=== PATIENT | female | born 1950 | race Caucasian/White ===

== ENCOUNTER 2019-03-07 08:15 | Inpatient (IN) | payer BC, MEDICARE ==
[~2019-03-07] VITALS: Ht 154.9 cm; Wt 83.1 kg
[2019-03-07] VITALS (7 sets, daily range): BP systolic 130–199; BP diastolic 36–91; PULSE 56–68; TEMP 97.7–98.2
[~2019-03-07 08:15] MED LIST: ALPRAZOLAM0.25 MG PO; BENICAR; BIRTH CONTROL PO; COZAAR 25MG25 MG/TAB PO; DIOVAN HCT 12.51 TAB PO; DULCOLAX STOOL100 MG PO; ELIQUIS 5MG PO; FASTIN; HIPREX PO; HYZAAR 50-12.1 UDTAB PO; LIPITOR 40MG TA40 MG PO; LIPITOR20 MG PO; LOPRESSOR 225 MG/TAB PO; NORCO 325 MG-51 TAB PO; NORCO 325 MG-7.1 TAB PO; VITAMIN C500 MG PO; XANAX .25M0.25 MG/TA PO
[2019-03-07] MEDS ORDERED: COZAAR100 MG PO ×2 (08:28→08:29)
[2019-03-07] MEDS ORDERED: CLEOCIN HC150 MG/CAP PO (08:29)
--- NOTE | 2019-03-07 08:30 | NUR ---
Pt arrived to room 304 at this time. She is A/O x3. She is up independently in her room. Pt denies pain at this time, but reports intermittent L jaw pain due to a tooth. Denies N/V. POC discussed with patient who verbalizes understanding. 20G IV started to RAC. No needs at this time. Call light within reach.
[2019-03-07] MEDS ORDERED: TYLENOL 500MG500 MG PO (08:32)
[2019-03-07 09:57] LABS: BASO # 0.1 (0.0-0.2); BASO % 0.8 % (0.0-2.0); EOS # 0.1 (0.0-0.7); EOS % 1.1 % (0-4.0); GRAN % 64.1 % (42.2-75.2); HEMATOCRIT 39.2 % (37.0-47.0); HEMOGLOBIN 12.6 g/dl (12.5-16.0); LYMPH # 1.7 (1.2-3.4); MEAN CELL VOLUME 87 fl (80.0-100.0); MEAN CORPUSCULAR HEMOGLOBIN 28 pg (27.0-31.0); MEAN CORPUSCULAR HGB CONC 32 g/dl (33.0-37.0); MONO # 0.4 (0.1-0.6); MONO % 6.7 % (1.7-9.3); PLATELET COUNT 239 K/mm3 (130-400); REDCELL DISTRIBUTION WIDTH-CV 13.9 % (11.5-14.5)
[2019-03-07 10:00] LABS: INR 1.3 (0.8-3.0); PROTHROMBIN TIME 14.8 SECONDS (9.7-12.8)
[2019-03-07 10:14] LABS: ALBUMIN 4.5 gm/dL (3.5-5.0); BILIRUBIN,TOTAL 0.4 mg/dL (0.0-1.0); CALCIUM 9.8 mg/dL (8.4-10.2); CREATININE, serum 0.6 (0.52-1.25); MAGNESIUM 2.3 mg/dL (1.6-2.3); POTASSIUM 4.2 mmol/L (3.4-5.0); TOTAL PROTEIN 7.9 gm/dL (6.4-8.2)
--- NOTE | 2019-03-07 18:47 | NUR ---
Pt report given to ESTRELLA Mendoza. Pt had high blood pressures through the day, Dr. Frank aware, PRN bp medication ordered. Pt appeared to be relaxed and denies any anxiety at time. PRN Tylenol administered for tooth pain. Family at bedside at this time. Call light within reach.
--- NOTE | 2019-03-07 19:32 | NUR ---
Patient sitting up in bed, knitting. Assessment completed- lungs clear, abdominal sounds active, pulses +3, cap reifll <3 seconds. C/O tooth pain- will give PRN tylenol to help alleviate pain. Alert and oriented x4, independent in room.
[2019-03-08 04:10] VITALS: BP 145/37; PULSE 63; TEMP 97.9
--- NOTE | 2019-03-08 05:10 | NUR ---
Pt slept for most of the night. Blood pressures improved over night, no hydralazine administered this shift. NO reports of pain. Alert and oriented, independent. Tylenol administered for tooth pain early in the shift. No reports of pain since.
[2019-03-08 06:55] LABS: BASO % 0.7 % (0.0-2.0); EOS # 0.1 (0.0-0.7); EOS % 1.8 % (0-4.0); GRAN # 3.6 (1.4-6.5); GRAN % 59.4 % (42.2-75.2); HEMATOCRIT 37.9 % (37.0-47.0); HEMOGLOBIN 12.4 g/dl (12.5-16.0); LYMPH # 1.9 (1.2-3.4); LYMPH % 30.4 % (20.0-51.0); MEAN CELL VOLUME 87 fl (80.0-100.0); MEAN CORPUSCULAR HEMOGLOBIN 28 pg (27.0-31.0); MEAN CORPUSCULAR HGB CONC 33 g/dl (33.0-37.0); MEAN PLATELET VOLUME 9.5 fl (7.4-10.4); MONO # 0.5 (0.1-0.6); MONO % 7.4 % (1.7-9.3); PLATELET COUNT 242 K/mm3 (130-400); RED BLOOD COUNT 4.36 M/mm3 (4.10-5.30)
[2019-03-08 06:58] LABS: CALCIUM 9.7 mg/dL (8.4-10.2); CREATININE, serum 0.65 (0.52-1.25); MAGNESIUM 2.4 mg/dL (1.6-2.3); POTASSIUM 4.3 mmol/L (3.4-5.0)
--- NOTE | 2019-03-08 07:10 | NUR ---
Report given to ESTRELLA Mendoza.
[2019-03-08 07:43] VITALS: BP 157/62; PULSE 65; TEMP 97.8
--- NOTE | 2019-03-08 09:14 | NUR ---
Pt assessment complete. Pt is sitting up on bench knitting. A/O x3. Her breathing is even and unlabored on RA. Pt reports pain to her L jaw/tooth, PRN Tylenol administered. Pt denies any N/V. No chest pain or palpitations. Pt updated on POC and BP. No needs at this time, call light within reach.
[2019-03-08 11:47] VITALS: BP 141/66; PULSE 57; TEMP 98.1
--- NOTE | 2019-03-08 12:18 | NUR ---
First visit from the oxygraph operator. No needs right now.
--- NOTE | 2019-03-08 15:11 | NUR ---
JESSICA student met with the patient to discuss discharge planning. The patient lives in [place] with her Davis. The patient reports independence with ADLs and has no DME. The patients PCP is Dr. Kimberley Cha and she gets her medications from [facility]. The patient reports no difficulties obtaining her medications. The patient does not have DPOA-HC in EMR but was interested in completing one. The patient assigned her Davis and son Andrea. SW and JESSICA student witnessed the patient sign. The patient was provided with the original and copies. A copy was placed in the patients chart. The patient plans to return home with [facility] support upon discharge. No additional needs at this time.
[2019-03-08 15:31] VITALS: BP 152/58; PULSE 58; TEMP 98.1
[2019-03-08 18:50] VITALS: BP 164/66; PULSE 68; TEMP 98.5
--- NOTE | 2019-03-08 19:13 | NUR ---
Pt had uneventful day, intermittent pain to L jaw/tooth. No needs at this time. Call light within reach.
--- NOTE | 2019-03-08 20:10 | NUR ---
Patient resting in bed. Assessment completd- lung sounds clear, abdominal sounds active, pulses +3, cap refill <3 seconds, ambulatory, alert and oriented x4. C/O toothache- given PRN tylenol. No further needs at this time.
[2019-03-08 23:06] VITALS: BP 139/48; PULSE 51; TEMP 97.9
[2019-03-09 04:27] VITALS: BP 156/52; PULSE 56; TEMP 97.9
--- NOTE | 2019-03-09 05:23 | NUR ---
Pt slept for most of the shift. VSS, afebrile. Tooth pain at beginning of shift relieved by tylenol. alert and oriented x4, independent. no needs at this time.
[2019-03-09 06:56] LABS: BASO % 0.6 % (0.0-2.0); EOS # 0.1 (0.0-0.7); EOS % 1.8 % (0-4.0); GRAN # 4.2 (1.4-6.5); GRAN % 61.8 % (42.2-75.2); HEMATOCRIT 37.5 % (37.0-47.0); HEMOGLOBIN 12.3 g/dl (12.5-16.0); LYMPH % 29.2 % (20.0-51.0); MEAN CELL VOLUME 86 fl (80.0-100.0); MEAN CORPUSCULAR HEMOGLOBIN 28 pg (27.0-31.0); MEAN CORPUSCULAR HGB CONC 33 g/dl (33.0-37.0); MEAN PLATELET VOLUME 9.1 fl (7.4-10.4); MONO # 0.4 (0.1-0.6); MONO % 6.3 % (1.7-9.3); PLATELET COUNT 244 K/mm3 (130-400); RED BLOOD COUNT 4.38 M/mm3 (4.10-5.30)
[2019-03-09 07:13] LABS: CALCIUM 9.6 mg/dL (8.4-10.2); CREATININE, serum 0.64 (0.52-1.25); MAGNESIUM 2.3 mg/dL (1.6-2.3); POTASSIUM 4.1 mmol/L (3.4-5.0)
--- NOTE | 2019-03-09 07:33 | NUR ---
REPORT GIVEN TO ESTRELLA DE DIOS. PATIENT AWAKE, ASKING FOR SHOWER THIS MORNING. NO TOHER NEEDS AT THIS TIME.
[2019-03-09 07:53] VITALS: BP 153/49; PULSE 51; TEMP 98
[2019-03-09] MEDS ORDERED: BETAPACE 80MG80 MG PO (10:09)
[2019-03-09] MEDS ORDERED: NORVASC 5MG5 MG/TAB PO (10:10)
[2019-03-09] MEDS ORDERED: ALDACTONE 25MG25 M1 PO (10:11)
[2019-03-09] MEDS ORDERED: BETAPACE 120MG120 MG PO (10:17)
[2019-03-09 10:55] VITALS: BP 167/59; PULSE 60; TEMP 97.7
--- NOTE | 2019-03-09 12:06 | NUR ---
patient assessment complete. patient sitting in chair knitting. lungs are clear throughout, heart sounds normal, no edema noted. Patient has no complaints. "Ready to hop in the RV and go north". Pulses are strong bilaterally in upper and lower extremities. PAtient is discharging. IV discontinued, catheter tip intact. Denies other needs at this time. Waiting for aide to escort out.
--- NOTE | 2019-03-12 10:15 | NUR ---
bingo worker received call from Aminah with [employer] ([phone]). Worker collaborated on patient's discharge plan.
== END 2019-03-09 11:55 | disposition home or self-care (01) | DRG 310 ==
LOC: PEDS 08:15
PROVIDERS: ADMIT Internal Medicine Cardiovascular Disease
DX: I48.0 Paroxysmal atrial fibrillation (principal); Z79.01 Long term (current) use of anticoagulants; I10 Essential (primary) hypertension; Z88.0 Allergy status to penicillin; Z87.891 Personal history of nicotine dependence; E78.2 Mixed hyperlipidemia
CPT/HCPCS: J0360

== ENCOUNTER → 2019-06-08 | Outpatient (CLI) | payer OTHER, MEDICARE ==
[~2019-06-08] MED LIST changes: +ALDACTONE 25MG25 M1 PO; +BETAPACE 120MG120 MG PO; +BETAPACE 80MG80 MG PO; +CLEOCIN HC150 MG/CAP PO; +COZAAR100 MG PO; +NORVASC 5MG5 MG/TAB PO; +TYLENOL 500MG500 MG PO
== END ==
LOC: MC.RAD 06:50
DX: Z12.31 Encounter for screening mammogram for malignant neoplasm of breast (principal)

== ENCOUNTER 2019-10-13 10:09 | Emergency (ER) | payer OTHER, MEDICARE ==
[~2019-10-13] VITALS: Ht 157.5 cm; Wt 81.4 kg
[2019-10-13 10:16] VITALS: TEMP 98.7
[2019-10-13 10:57] LABS: COLLECTION METHOD CLEAN CATCH
[2019-10-13 11:01] LABS: BASO # 0.1 (0.0-0.2); BASO % 0.4 % (0.0-2.0); EOS # 0.1 (0.0-0.7); EOS % 0.4 % (0-4.0); GRAN % 81.1 % (42.2-75.2); HEMATOCRIT 37.9 % (37.0-47.0); HEMOGLOBIN 12.6 g/dl (12.5-16.0); LYMPH # 1.4 (1.2-3.4); LYMPH % 10.1 % (20.0-51.0); MEAN CELL VOLUME 87 fl (80.0-100.0); MEAN CORPUSCULAR HEMOGLOBIN 29 pg (27.0-31.0); MEAN CORPUSCULAR HGB CONC 33 g/dl (33.0-37.0); MEAN PLATELET VOLUME 9.6 fl (7.4-10.4); MONO # 1.1 (0.1-0.6); MONO % 7.7 % (1.7-9.3); PLATELET COUNT 254 K/mm3 (130-400); RED BLOOD COUNT 4.36 M/mm3 (4.10-5.30); REDCELL DISTRIBUTION WIDTH-CV 12.7 % (11.5-14.5)
[2019-10-13 11:15] LABS: ALBUMIN 4.5 gm/dL (3.5-5.0); BILIRUBIN,TOTAL 0.7 mg/dL (0.0-1.0); CALCIUM 9.9 mg/dL (8.4-10.2); CREATININE, serum 0.71 (0.52-1.25); MUCOUS Present /lpf; PH 6 (5-8); POTASSIUM 4.2 mmol/L (3.4-5.0); SQUAMOUS EPITHELIAL 0-2 /hpf; TOTAL PROTEIN 8.3 gm/dL (6.4-8.2); URINE APPEARANCE Clear; URINE BACTERIA None Seen /hpf; URINE BILIRUBIN Negative (NEGATIVE); URINE BLOOD Negative (NEGATIVE); URINE COLOR Yellow; URINE GLUCOSE Negative (NEGATIVE); URINE KETONE 1+ (NEGATIVE); URINE LEUKOCYTE ESTERASE 1+ (NEGATIVE); URINE NITRATE Negative (NEGATIVE); URINE PROTEIN(semi-quant) Negative (NEGATIVE); URINE RBC 0-2 /hpf; URINE UROBILINOGEN Negative (NEGATIVE)
[2019-10-13] MEDS ORDERED: SEPTRA DS 8001 TAB PO (12:26)
[2019-10-13] MEDS ORDERED: FLAGYL500 MG PO (12:26)
[2019-10-13] MEDS ORDERED: BENTYL 10MG10 MG/CAP PO (12:27)
[2019-10-13] MEDS ORDERED: LEVAQUIN 750MG750 M1 PO (12:57)
[2019-10-13] MEDS ORDERED: ZOFRAN ODT4 MG PO (12:58)
[2019-10-13 14:40] VITALS: BP 145/69; PULSE 69
== END 2019-10-13 14:52 | disposition home or self-care (01) ==
LOC: COL.ER 10:09
PROVIDERS: Emergency Medicine
DX: K57.92 Diverticulitis of intestine, part unspecified, without perforation or abscess without bleeding (principal)
CPT/HCPCS: J1170; J1956; J2405; J2550; J7030

== ENCOUNTER 2020-04-22 17:09 | Emergency (ER) | payer OTHER ==
[~2020-04-22] VITALS: Ht 157.5 cm; Wt 81.4 kg
[~2020-04-22 17:09] MED LIST changes: +BENTYL 10MG10 MG/CAP PO; +FLAGYL500 MG PO; +LEVAQUIN 750MG750 M1 PO; +SEPTRA DS 8001 TAB PO; +ZOFRAN ODT4 MG PO
[2020-04-22 17:28] VITALS: TEMP 98.7
[2020-04-22] MEDS ORDERED: EPA FISH OIL1 SGL PO (19:29)
[2020-04-22] MEDS ORDERED: ZOLOFT 50MG50 MG PO (19:29)
[2020-04-22] MEDS ORDERED: MELATIN 3 MG-11 TAB PO (19:30)
[2020-04-22 21:09] VITALS: BP 153/78; PULSE 78
[2020-04-23] MEDS ORDERED: COLACE 100100 MG/CAP PO (06:46)
[2020-04-23] MEDS ORDERED: MELATONIN5 M1 PO (06:50)
[2020-04-25] MEDS ORDERED: ULTRAM 50MG TAB50 MG PO (11:55)
== END 2020-04-22 21:09 | disposition home or self-care (01) ==
LOC: COL.ER 17:09
DX: K59.00 Constipation, unspecified (principal); K57.92 Diverticulitis of intestine, part unspecified, without perforation or abscess without bleeding

== ENCOUNTER 2020-05-08 09:55 | Inpatient (IN) | payer OTHER, MEDICARE ==
[2020-05-08] VITALS (10 sets, daily range): BP systolic 87–156; BP diastolic 56–73; PULSE 62–78; TEMP 98.2–98.6
[~2020-05-08] VITALS: Ht 157.5 cm; Wt 82.3 kg
[~2020-05-08 09:55] MED LIST changes: +COLACE 100100 MG/CAP PO; +EPA FISH OIL1 SGL PO; +MELATIN 3 MG-11 TAB PO; +MELATONIN5 M1 PO; +ULTRAM 50MG TAB50 MG PO; +ZOLOFT 50MG50 MG PO
[2020-05-08 10:30] LABS: BASO # 0.1 (0.0-0.2); BASO % 0.4 % (0.0-2.0); EOS # 0.1 (0.0-0.7); EOS % 0.8 % (0-4.0); GRAN # 13.2 (1.4-6.5); GRAN % 82.4 % (42.2-75.2); HEMATOCRIT 39.6 % (37.0-47.0); HEMOGLOBIN 12.9 g/dl (12.5-16.0); LYMPH # 1.7 (1.2-3.4); LYMPH % 10.4 % (20.0-51.0); MEAN CELL VOLUME 89 fl (80.0-100.0); MEAN CORPUSCULAR HEMOGLOBIN 29 pg (27.0-31.0); MEAN CORPUSCULAR HGB CONC 33 g/dl (33.0-37.0); MONO # 0.9 (0.1-0.6); MONO % 5.5 % (1.7-9.3); PLATELET COUNT 331 K/mm3 (130-400); RED BLOOD COUNT 4.46 M/mm3 (4.10-5.30); REDCELL DISTRIBUTION WIDTH-CV 13.5 % (11.5-14.5)
[2020-05-08 10:46] LABS: ALBUMIN 4.6 gm/dL (3.5-5.0); BILIRUBIN,TOTAL 0.6 mg/dL (0.0-1.0); C-REACTIVE PROTEIN 2.7 mg/dL (0.0-0.9); CREATININE, serum 0.47 (0.52-1.25); POTASSIUM 4.3 mmol/L (3.4-5.0)
[2020-05-08 11:35] LABS: COLLECTION METHOD CLEAN CATCH
[2020-05-08 12:26] LABS: MUCOUS Present /lpf; PH 6 (5-8); URINE APPEARANCE Clear; URINE BACTERIA None Seen /hpf; URINE BILIRUBIN Negative (NEGATIVE); URINE BLOOD Negative (NEGATIVE); URINE COLOR Yellow; URINE GLUCOSE Negative (NEGATIVE); URINE KETONE Negative (NEGATIVE); URINE LEUKOCYTE ESTERASE 2+ (NEGATIVE); URINE NITRATE Negative (NEGATIVE); URINE PROTEIN(semi-quant) Negative (NEGATIVE); URINE RBC 0-2 /hpf; URINE UROBILINOGEN Negative (NEGATIVE)
[2020-05-08 12:31] LABS: SQUAMOUS EPITHELIAL 0-2 /hpf
--- NOTE | 2020-05-08 15:30 | NUR ---
Patient arrived to floor from radiology. Started a dilauded PUBLIC INFORMATION COORDINATOR as ordered. After PUBLIC INFORMATION COORDINATOR started patient stated she is going to surgery at 1630. Patient is having some nausea, zofran ordered. is at bedside.
--- NOTE | 2020-05-08 16:30 | NUR ---
Patient is off the floor surgery. Consent signed on the chart. is staying in the room.
--- NOTE | 2020-05-08 20:00 | NUR ---
RETURNS FROM SURGERY PER BED. IS ALERT AND ORIENTED X4. IVF TO RIGHT AC. WEARING OXYGEN 2L/NC.
--- NOTE | 2020-05-08 20:42 | NUR ---
PT REPORTS PAIN TO RIGHT ABD 8/10. HAS AAMIR DRAIN TO BULB SX AND RT ILEOSTOMY DRAINING LIQUID BROWN. IVF INFUSING TO RIGHT AC WITHOUT REDNESS OR SWELLING. DID NOT CONNECT PT BACK TO CONTINUITY COORDINATOR, DID GIVE DILAUDID 0.25MG IVP AT THIS TIME. PT VERY NERVOUS REGARDING NARCOTICS. WILL MONITOR FOR NEED TO RESUME CONTINUITY COORDINATOR. ZOFRAN GIVEN IV FOR MILD NAUSEA.
--- NOTE | 2020-05-08 21:37 | NUR ---
MEDICATED WITH OXYCODONE 5MG PO FOR PAIN 04/30 TO RT ABD. PT TAKES HS MEDS WITHOUT PROBLEM. HAS ALSO DRANK APPLE JUICE AND WATER AND ATE ONE JELLO. IS ON A CLEAR LIQUID DIET.
--- NOTE | 2020-05-08 23:02 | NUR ---
MEDICATED WITH DILAUDID 0.25MG IVP FOR PAIN 04/30 TO RT ABD. PT ROLLS SIDE TO SIDE TO REMOVE OLD SHEETS FROM OR. WILL MONITOR FOR CHANGES.
--- NOTE | 2020-05-09 | NUR ---
LAST POST-OP VITALS COMPLETE. PT REPORTS GOOD RELIEF OF PAIN AT THIS TIME, RESTING.
--- NOTE | 2020-05-09 01:53 | NUR ---
PT REPORTS PAIN TO RIGHT ABD, ESPECIALLY WITH MOVEMENT. MEDICATED WITH DILAUID 0.25MG IVP AT THIS TIME.
[2020-05-09 04:00] VITALS: BP 148/89; PULSE 68; TEMP 98.8
--- NOTE | 2020-05-09 04:07 | NUR ---
PT HAVING RT SIDE ABDOMINAL PAIN, MEDICATED WITH OXYCODONE 5MG AND DILAUDID 0.25MG IVP AT THIS TIME. DENIES PAIN TO LEFT ABD. ILEOSTOMY DRAINING WELL.
--- NOTE | 2020-05-09 07:07 | NUR ---
MEDICATED WITH DILAUDID 0.25MG IVP FOR PAIN 06/30 AT DRAIN SITE RT ABD.
[2020-05-09 08:00] LABS: HEMOGLOBIN 11.5 g/dl (12.5-16.0); MEAN CELL VOLUME 91 fl (80.0-100.0); MEAN CORPUSCULAR HEMOGLOBIN 29 pg (27.0-31.0); MEAN CORPUSCULAR HGB CONC 32 g/dl (33.0-37.0); MEAN PLATELET VOLUME 9.2 fl (7.4-10.4); PLATELET COUNT 294 K/mm3 (130-400); RED BLOOD COUNT 3.93 M/mm3 (4.10-5.30); REDCELL DISTRIBUTION WIDTH-CV 13.9 % (11.5-14.5)
--- NOTE | 2020-05-09 08:00 | NUR ---
Patient in bed resting. Alert and oriented x 3. Assessment complete. States pain 2/10 to abdomen at this time. Lap x 2 with bandaids are CDI. Foss to dependent drainage with clear yellow urine in bag. Ostomy to right quadrant with liquid brown output noted. Fluids infusing per orders. Denies further needs at this time.
[2020-05-09 08:01] VITALS: BP 150/66; PULSE 66; TEMP 97.7
[2020-05-09 08:09] LABS: HEMATOCRIT 35.7 % (37.0-47.0)
[2020-05-09 08:11] LABS: CALCIUM 9.4 mg/dL (8.4-10.2); CREATININE, serum 0.66 (0.52-1.25)
[2020-05-09 08:26] LABS: BAND 29 % (0-10); LYMPHOCYTE 10 % (20.0-51.0); NEUTROPHILS 59 % (42.0-75.2); OVALOCYTES 1+
--- NOTE | 2020-05-09 09:10 | NUR ---
Patient called out to nurses station complaining of pain 8/10 to abdomen, medications given per orders. Denies further needs at this time.
--- NOTE | 2020-05-09 10:53 | NUR ---
Tobacco Farmworker met with patient to discuss discharge planning. Patient lives in [place] with her , Davis (ph#[phone]) who is currently at bedside. Patient sees Dr. Miguel for primary care and obtains medications from [facility] with no difficulties. Patient does not use any DME and reports independence with ADLS. Patient has [facility]- located in [facility] which designates Davis and her son, Andrea (ph#[phone]). Patient plans to return home upon discharge. No needs identified at this time.
[2020-05-09 11:37] VITALS: BP 147/70; PULSE 72; TEMP 98.6
[2020-05-09 15:32] VITALS: BP 155/62; PULSE 64; TEMP 98.6
--- NOTE | 2020-05-09 18:04 | NUR ---
Patient sat up on edge of bed for approximately 10 minutes. Was able to stand and sit with minimal assist.
--- NOTE | 2020-05-09 19:16 | NUR ---
Patient has done well throughout the day. Pain medications given per orders. States pain is better since alternating ultram and roxycodone. SCDs maintained to BLE. AAMIR with serosanguinous drainage present. Denies further needs at this time. Will report off to car shifter.
[2020-05-09 21:30] VITALS: BP 149/65; PULSE 81; TEMP 98.4
--- NOTE | 2020-05-09 21:33 | NUR ---
PT IN BED, IS ALERT AND ORIENTED X4. HAS SL TO RIGHT AC, FLUSHED WELL. REPORTS PAIN 6/10 TO RT ABD, MEDICATED WITH HS MEDS INCLUDING TRAMADOL 100MG PO ALSO. AAMIR DRAIN WITH SEROSANGUINOUS DRAINAGE, ILEOSTOMY WITH BROWN DRAINAGE, SOME SOFT STOOL NOTED. PT STILL DOES NOT LIKE TO LOOK AT ILEOSTOMY SITE. PARIKH TO BSD, CARES GIVEN. LAP SITES X2 WITH BANDAIDS, 3RD LAP SITE UNDER GAUZE DRSG COVERING AAMIR SITE. PT ON CLEAR LIQUIDS, TOLERATING WITHOUT PROBLEM.
[2020-05-10] VITALS (7 sets, daily range): BP systolic 120–169; BP diastolic 54–89; PULSE 67–82; TEMP 97.9–98.6
--- NOTE | 2020-05-10 01:11 | NUR ---
PT REPORTS NAUSEA, BELIEVES ITS FROM THE IV FLAGYL. ZOFRAN 4MG IVP GIVEN WELL OXYCODONE 5MG PO.
--- NOTE | 2020-05-10 01:25 | NUR ---
PT REPORTS MORE PAIN, ESPECIALLY WITH MOVEMENT, MEDICATED WITH DILAUDID 0.25MG IVP AT THIS TIME. COOL CLOTH GIVEN FOR FOREHEAD.
--- NOTE | 2020-05-10 05:00 | NUR ---
PT COMPLAINING OF NAUSEA, REPOSITIONED IN BED. ABD MORE DISTENDED, SOFT. ZOFRAN 4MG IVP NOW AND RESTARTED IVF DUE TO DECREASED INTAKE AND PARIKH OUTPUT DECREASED AND URINE TEA COLORED. PT REPORTS "I JUST DON'T FEEL WELL". HAD FLATUS IN ILEOSTOMY BAG PREVIOUSLY, NONE AT THIS TIME. WILL MONITOR FOR CHANGES.
--- NOTE | 2020-05-10 05:09 | NUR ---
MEDICATED WITH DILAUDID 0.25MG IV AT THIS TIME.
--- NOTE | 2020-05-10 06:00 | NUR ---
Pt reports feeling better at this time. No emesis, pain is controlled.
--- NOTE | 2020-05-10 08:00 | NUR ---
Patient resting in bed at this time. Patient is alert and oriented, answers questions appropriately. Patient reports that pain is well controlled at this time. Patient states that she does not want to take any more IV flagyl, as she spent four hours after each dose she had previously very nauseated. Will report to surgeon when he rounds. Foss catheter in place per order. Urine is dark yellow/tony with some sediment visible. Ostomy is dressed with appliance, small amount of liquid stool in pouch. Patient denies further needs, call light within reach.
[2020-05-10 09:18] LABS: BASO % 0.1 % (0.0-2.0); EOS % 0.1 % (0-4.0); GRAN # 11.7 (1.4-6.5); GRAN % 86.9 % (42.2-75.2); HEMATOCRIT 37.8 % (37.0-47.0); HEMOGLOBIN 12.1 g/dl (12.5-16.0); LYMPH % 7.1 % (20.0-51.0); MEAN CELL VOLUME 91 fl (80.0-100.0); MEAN CORPUSCULAR HEMOGLOBIN 29 pg (27.0-31.0); MEAN CORPUSCULAR HGB CONC 32 g/dl (33.0-37.0); MEAN PLATELET VOLUME 9.3 fl (7.4-10.4); MONO # 0.7 (0.1-0.6); MONO % 5.3 % (1.7-9.3); PLATELET COUNT 323 K/mm3 (130-400); RED BLOOD COUNT 4.15 M/mm3 (4.10-5.30); REDCELL DISTRIBUTION WIDTH-CV 14.1 % (11.5-14.5)
[2020-05-10 09:27] LABS: CALCIUM 9.8 mg/dL (8.4-10.2); CREATININE, serum 0.64 (0.52-1.25); POTASSIUM 4.6 mmol/L (3.4-5.0)
--- NOTE | 2020-05-10 17:26 | NUR ---
Patient currently resting in bed, in good spirits and reports she is feeling better this evening. Patient reported no nausea with new antibiotic. Patient up and ambulated from bed to hallway and back, patient reported marked nausea after ambulation, administered PRN zofran per order. Foss remains in place per order, urine appearance has deteriorated over the shift, urine is pink/tony and cloudy with a significant amount of sediment in it. Reported findings to surgeon during rounds, no new orders recieved. IVF continue per order. Patient requested PRN tramadol, administered per order for 5/10 pain in right abdomen. Patient denies further needs at this time, call light within reach.
--- NOTE | 2020-05-10 20:05 | NUR ---
Pt in bed, is alert and oriented x4. Has IVF infusing to right AC, AAMIR drain to bulb sx with serous fluid. Has ileostomy with good brown drainage, emptied at this time. Foss cares provided, urine orange tinged with sediment present. Takes HS meds including Ibuprofen 600mg po now. Denies nausea at this time.
--- NOTE | 2020-05-10 20:15 | NUR ---
Ambulated in hallway to Rehab door and back, steady gait. Belched alot of gas when up. Denies nausea when returning to bed.
[2020-05-11] VITALS (7 sets, daily range): BP systolic 140–190; BP diastolic 64–76; PULSE 73–84; TEMP 98–98.8
--- NOTE | 2020-05-11 04:00 | NUR ---
Pt in bed, awake. Reports feeling "weak". VSS. Urine output remains low with tea color noted. AAMIR with 7cc of tea colored fluid, emptied and placed back to bulb sx. Reports pain is "manageable" at 5/10. Wanted only one Tylenol 325mg. IVF continue to right AC without problem. Emptied ileostomy at this time.
[2020-05-11 07:24] LABS: MEAN CELL VOLUME 89 fl (80.0-100.0); MEAN CORPUSCULAR HEMOGLOBIN 29 pg (27.0-31.0); MEAN CORPUSCULAR HGB CONC 33 g/dl (33.0-37.0); PLATELET COUNT 268 K/mm3 (130-400); RED BLOOD COUNT 3.78 M/mm3 (4.10-5.30); REDCELL DISTRIBUTION WIDTH-CV 13.4 % (11.5-14.5)
[2020-05-11 07:31] LABS: HEMATOCRIT 33.6 % (37.0-47.0)
[2020-05-11 07:42] LABS: CALCIUM 9.3 mg/dL (8.4-10.2); CREATININE, serum 0.52 (0.52-1.25); POTASSIUM 4.2 mmol/L (3.4-5.0)
--- NOTE | 2020-05-11 07:45 | NUR ---
Patient called to report nausea and requested PRN antiemetic, administered per order. Patient is alert and oriented, answers questions appropriately. Patient states she does not think she has pain, but will reassess after her nausea is controlled. Foss remains in place per order; urine is tony with a red tinge and is cloudy with significant sediment. AAMIR drain in place. Scant drainage present at this time, drainage is dark tony and clear. Ostomy with intact appliance, a small amount of liquid stool present in bag. Patient denies further needs at this time, call light within reach.
--- NOTE | 2020-05-11 18:44 | NUR ---
Patient has had persistant nausea throughout the day today; PRN zofran has been insufficient to control. Called probation manager surgeon to report persistant nausea, patient malaise, low oral output and low urine output. Recieved TORB to increase IV rate and to add PRN phenegran. Administered per order. Patient reports that she is still feeling very nauseous, and has felt no real change in condition. Foss remains in place, urine is bloody and has significant sediment. AAMIR has minimal output. Iliostomy has moderate output. Call light within reach.
--- NOTE | 2020-05-11 19:19 | NUR ---
Report received from ESTRELLA Gill. Patient lying in bed with eyes closed up arrival to the room. Foss draining light red urine and AAMIR drain draining reddish drainage. Ileostomy has moderate output, this nurse will empty during assessment. Patient continues to complain of nausea, but IV Phenergan was just administered. Denies any further needs at this time.
--- NOTE | 2020-05-11 21:59 | NUR ---
Patient's blood pressure noted to be high at about 1999 when vitals were taken. BP: 190/76. Patient stated she hadn't taken her blood pressure medication today. Sotalol was scheduled for patient, so this was administered and blood pressure rechecked at 2114. BP at this time was 159/75. Will continue to monitor patient's blood pressure.
[2020-05-12] VITALS (7 sets, daily range): BP systolic 151–178; BP diastolic 57–77; PULSE 54–81; TEMP 97.6–98.9
--- NOTE | 2020-05-12 00:06 | NUR ---
Dr. Cole notified about high blood pressure at 170/76. No new orders at this time and he stated to continue to monitor. Physician also updated on the patient refusing her next Clindamycin dose because she thinks that its the medication causing all of her nausea. Dr. Cole stated, "Okay." Will continue to monitor.
--- NOTE | 2020-05-12 03:17 | NUR ---
Patient called and was actively vomiting. 400ml dark green emesis noted with more that was unmeasured on the patient's bed. Bed change completed. Patient stated her nausea was a lot better after emesis. Abdomen continues to be distended and firm. 200ml output from ileostomy. Patient denies any further needs.
[2020-05-12 06:03] LABS: HEMATOCRIT 33.9 % (37.0-47.0); MEAN CELL VOLUME 89 fl (80.0-100.0); MEAN CORPUSCULAR HEMOGLOBIN 29 pg (27.0-31.0); MEAN CORPUSCULAR HGB CONC 32 g/dl (33.0-37.0); MEAN PLATELET VOLUME 9.1 fl (7.4-10.4); PLATELET COUNT 278 K/mm3 (130-400); RED BLOOD COUNT 3.81 M/mm3 (4.10-5.30); REDCELL DISTRIBUTION WIDTH-CV 13.3 % (11.5-14.5)
[2020-05-12 06:18] LABS: CALCIUM 9.3 mg/dL (8.4-10.2); CREATININE, serum 0.49 (0.52-1.25); POTASSIUM 4.1 mmol/L (3.4-5.0)
--- NOTE | 2020-05-12 08:41 | NUR ---
Patient in bed, refusing breakfast states she does not feel well. Occassional burping with green emisis. Foss to dependent drainage with pink urine, appears cloudy. AAMIR with red-tinged output. Lap sites x 2 with edges well approximated. Ostomy with liquid brown output noted gas noted in ostomy pouch, burped at this time . Bowel sounds hypoactive. IV fluids infusing per orders. Patint states pain is "fine" at this time. No further needs at this time. Will continue to monitor.
--- NOTE | 2020-05-12 11:16 | NUR ---
Patient continues to have small amounts of green emesis. Urine in Foss bag appears tea colored at this time. Denies nausea at this time. Spouse at bedside. Will continue to monitor.
--- NOTE | 2020-05-12 15:19 | NUR ---
JESSICA met with the patient and her , Davis to revisit the discharge plan. They plan to return home. The patient states she has been getting out of bed and walking around with the nurse. JESSICA contacted the patient's nurse to order PT/OT evaluation. Will continue to monitor.
--- NOTE | 2020-05-12 15:43 | NUR ---
Patient in bed sleeping
[2020-05-12 18:01] LABS: COLLECTION METHOD CLEAN CATCH
[2020-05-12 18:28] LABS: PH 6 (5-8); SQUAMOUS EPITHELIAL None Seen /hpf; URINE APPEARANCE Cloudy; URINE BACTERIA None Seen /hpf; URINE BILIRUBIN Negative (NEGATIVE); URINE BLOOD 3+ (NEGATIVE); URINE COLOR Red; URINE GLUCOSE 1+ (NEGATIVE); URINE KETONE Negative (NEGATIVE); URINE LEUKOCYTE ESTERASE Negative (NEGATIVE); URINE NITRATE Negative (NEGATIVE); URINE PROTEIN(semi-quant) 2+ (NEGATIVE); URINE RBC >50 /hpf; URINE UROBILINOGEN Negative (NEGATIVE)
--- NOTE | 2020-05-12 19:10 | NUR ---
Notified Dr. Oswald of . No new orders at this time. Will continue to monitor.
[2020-05-13 03:58] VITALS: BP 137/65; PULSE 65; TEMP 98
--- NOTE | 2020-05-13 03:58 | NUR ---
Patient stated she is feeling much better than the night before. Nausea is a lot better. Foss continues to drain reddish urine, but it appears less "milky" tonight. AAMIR drain appears to have a purulent appearance and drainage is very minimal. Ileostomy working well and drains dark brown, liquid stool. Patient sat on the side of the bed tonight and dangled her feet. Stated this made her burp and feel a lot better. PRN Zofran given before antibiotics administered. This appears to help nausea. Patient stated she was able to eat half a cup of pudding and doesn't have nausea at this time. Denies pain. Will continue to monitor.
[2020-05-13 06:12] LABS: HEMOGLOBIN 10.6 g/dl (12.5-16.0); MEAN CELL VOLUME 88 fl (80.0-100.0); MEAN CORPUSCULAR HEMOGLOBIN 29 pg (27.0-31.0); MEAN CORPUSCULAR HGB CONC 33 g/dl (33.0-37.0); PLATELET COUNT 236 K/mm3 (130-400); RED BLOOD COUNT 3.61 M/mm3 (4.10-5.30); REDCELL DISTRIBUTION WIDTH-CV 13.2 % (11.5-14.5)
[2020-05-13 06:19] LABS: HEMATOCRIT 31.9 % (37.0-47.0)
[2020-05-13 06:23] LABS: CALCIUM 8.8 mg/dL (8.4-10.2); CREATININE, serum 0.34 (0.52-1.25); POTASSIUM 3.4 mmol/L (3.4-5.0)
[2020-05-13 07:46] LABS: BAND 11 % (0-10); EOSINOPHIL 3 % (0-4)
[2020-05-13 07:47] LABS: NEUTROPHILS 60 % (42.0-75.2)
[2020-05-13 07:48] LABS: LYMPHOCYTE 20 % (20.0-51.0)
[2020-05-13 07:49] LABS: PLATELET ESTIMATE NORMAL (NORMAL)
[2020-05-13 08:28] VITALS: BP 167/76; PULSE 67; TEMP 98.2
--- NOTE | 2020-05-13 11:22 | NUR ---
The patient's plugman, Yakelin White from [facility] contacted JESSICA. Yakelin gave SW a list of [employer] agencies that are in network with the patient's insurance. JESSICA met with the patient and the patient's discussed the list of agencies. They chose [facility]. JESSICA faxed referral. Awaiting response. JESSICA presented the IM form to the patient. The patient understood and gave JESSICA permission to sign the form on her behalf. A copy was provided to the patient and original was placed in the chart. JESSICA collaborted the above information with the patient's nurse and her housing case manager.
--- NOTE | 2020-05-13 11:52 | NUR ---
PATIENT GIVEN PRN IV DOSE OF ZOFRAN PRIOR TO IV ANTIBIOTIC ADMINISTRATION PER PATIENT REQUEST AT THIS TIME. WILL CONTINUE TO MONITOR.
[2020-05-13 12:00] VITALS: BP 152/81; PULSE 71; TEMP 98.7
--- NOTE | 2020-05-13 15:00 | NUR ---
PARIKH CATHETER DISCONTINUED PER DOCTOR ORDERS. 9 MLS OF STERILE WATER ASPIRATED FROM BALLOON. BALLOON TIP INTACT. PATIENT TOLERATED WELL. TERESSA-CARE PROVIDED AT THIS TIME. PATIENT EDUCATED ON VOIDING POST-PARIKH REMOVAL. PATIENT DENIES ANY NEEDS AT THIS TIME.
--- NOTE | 2020-05-13 15:33 | NUR ---
Vanessa from [facility] reports they can take the patient for [facility]. SW informed the team and the patient.
[2020-05-13 16:06] VITALS: BP 158/58; PULSE 64; TEMP 98.2
--- NOTE | 2020-05-13 18:35 | NUR ---
PATIENT VOIDING SUFFICIENTLY POST PARIKH CATHETER REMOVAL.
--- NOTE | 2020-05-13 19:29 | NUR ---
REPORT GIVEN TO ESTRELLA HONG.
[2020-05-13 19:36] VITALS: BP 168/69; PULSE 60; TEMP 97.5
--- NOTE | 2020-05-13 23:15 | NUR ---
Patient reported having bladder cramps and/or spasms and was unable to void since 1830. Bladder scan completed, revealed [address] Canseco called to update on patient situation. New order if patient not able to void in two hours to straight cath one time.
[2020-05-13 23:37] VITALS: BP 167/67; PULSE 64; TEMP 97.4
--- NOTE | 2020-05-14 01:53 | NUR ---
Patient called out stating she had "wet the bed." Patient reported cramping/spasms gone at this time. Bed changed completed.
--- NOTE | 2020-05-14 03:35 | NUR ---
Patient has not slept much this shift. Patient had complaints of pain mid shift, but had since resolved. Antibiotics given as ordered. Vital signs stable. AAMIR meyers puttingout perulent drainage at this time. Ostomy also putting out stool and gas at this time. Patient has not helped with osotmy at this point,but is able to look and and talk aobut it.
[2020-05-14 05:00] VITALS: BP 168/61; PULSE 72
[2020-05-14 06:17] LABS: BASO % 0.3 % (0.0-2.0); EOS % 0.3 % (0-4.0); GRAN # 5.4 (1.4-6.5); HEMOGLOBIN 10.9 g/dl (12.5-16.0); MEAN CELL VOLUME 87 fl (80.0-100.0); MEAN CORPUSCULAR HEMOGLOBIN 29 pg (27.0-31.0); MEAN CORPUSCULAR HGB CONC 33 g/dl (33.0-37.0); MEAN PLATELET VOLUME 8.7 fl (7.4-10.4); MONO # 0.6 (0.1-0.6); MONO % 8.1 % (1.7-9.3); PLATELET COUNT 207 K/mm3 (130-400); RED BLOOD COUNT 3.78 M/mm3 (4.10-5.30); REDCELL DISTRIBUTION WIDTH-CV 12.9 % (11.5-14.5)
[2020-05-14 06:21] LABS: HEMATOCRIT 32.9 % (37.0-47.0)
[2020-05-14 06:26] LABS: BILIRUBIN,TOTAL 0.6 mg/dL (0.0-1.0); CALCIUM 8.9 mg/dL (8.4-10.2); CREATININE, serum 0.38 (0.52-1.25); POTASSIUM 3.3 mmol/L (3.4-5.0); TOTAL PROTEIN 5.9 gm/dL (6.4-8.2)
[2020-05-14 08:24] VITALS: BP 166/69; PULSE 71; TEMP 98.1
--- NOTE | 2020-05-14 09:07 | NUR ---
Patient resting in bed at this time. Patient sleeping upon entering room, but roused easily and was alert and oriented while awake. Patient reports that she was up most of the night with bladder pain due to problems voiding post catheter removal. Patient has been able to void several times since and currently reports no issues. Patient denies nausea or pain at this time, and was able to eat about half of her breakfast this morning. PT denies further needs and is about to ambulate in hallways with PT.
[2020-05-14 12:10] VITALS: BP 155/80; PULSE 70; TEMP 98
[2020-05-14 16:58] VITALS: BP 158/65; PULSE 71; TEMP 98.2
--- NOTE | 2020-05-14 18:01 | NUR ---
Patient resting in bed at this time. Patient has not c/o pain or nausea today. IVF continue per order. Patient has been able to eat small/moderate amounts for meals today. Patient denies needs at this time, call light within reach.
--- NOTE | 2020-05-14 18:31 | NUR ---
Conducted ostomy teaching with patient, patient's not present. Discussed placing appliance on skin, how to trim opening to fit ostomy, and how to apply to achieve a good seal. Discussed how to attach bag to appliance, how to ensure good seal, and how to open, empty, clean, and close bag. Discussed how often to empty bag and indications that the bag is getting too full. Patient needs review, but was interested and participated in teaching. Gave patient ostomy bag so she could practice opening and closing bag. Patient asked questions and seemed engaged. Denied further needs, call light within reach.
[2020-05-14 19:39] VITALS: BP 159/76; PULSE 75; TEMP 98.7
[2020-05-14 23:31] VITALS: BP 170/59; PULSE 67; TEMP 98.7
--- NOTE | 2020-05-15 03:07 | NUR ---
Patient stated she felt better at the beginning of the shift. Patient tolerated PO medications well. About 2330 patient called and stated she was nauseous. PRN Zofran given. This was uneffective. At about 0045 patient called and was continued to be nauseas and had dark green emesis at this time. PRN Phenergan administered at this time. This was effective and patient has been asleep since administration. Villareal output noted from AAMIR drain. Patient voiding clear, yellow urine. Up to the commode independently. IVF continue to left AC d/t poor intake. Ileostomy emptied by staff and education completed when this was done. Patient continues to need reassurance about caring for it. 3 lap sites to abdomen covered with bandaids. Bandaids CDI. Will continue to monitor patient.
[2020-05-15 03:32] VITALS: BP 180/79; BP 184/92; PULSE 69; TEMP 98.3
--- NOTE | 2020-05-15 04:33 | NUR ---
Dr. Cole notified about BP being 180/79. Stated to continue to monitor and see what the blood pressure is next round of vitals. No new orders. Will monitor.
[2020-05-15 07:12] VITALS: BP 166/70; PULSE 77; TEMP 98.2
--- NOTE | 2020-05-15 08:03 | NUR ---
PATIENT REQUESTING MEDICATION FOR NAUSEA AND VOMITING. PATIENT GIVEN ORN IV DOSE OF ZOFRAN AT THIS TIME. WILL CONTINUE TO MONITOR.
--- NOTE | 2020-05-15 10:38 | NUR ---
PATIENT STATES THAT THE NAUSEA AND VOMITING HAS NOT IMPROVED. PATIENT GIVEN PRN IV DOSE OF PHENERGAN AT THIS TIME. WILL CONTINUE TO MONITOR.
[2020-05-15 11:28] VITALS: BP 168/92; PULSE 70; TEMP 98.2
--- NOTE | 2020-05-15 11:50 | NUR ---
UPON REASSESSMENT THE PATIENT STATES THAT HER NAUSEA IS DOING BETTER AFTER RECEIVING THE IV PHENERGAN. PATIENT ASKED IF SHE WOULD LIKE TO ATTEMPT TAKING MORNING MEDICATIONS. PATIENT STATED THAT SHE WOULD LIKE TO WAIT ON TAKING MEDICATIONS AT THIS TIME. WILL CONTINUE TO MONITOR.
--- NOTE | 2020-05-15 12:27 | NUR ---
PATIENT STATED THAT SHE FELT LIKE SHE CAN TAKE HER MORNING MEDICATIONS NOW.
--- NOTE | 2020-05-15 15:54 | NUR ---
JESSICA met with the patient to present the IM form. The patient understood her right and gave JESSICA permission to sign the form on her behalf. JESSICA provided a copy to the patient and original was placed in the chart. JESSICA revisited the discharge plan and the plan is to go home with [facility]. JESSICA contacted her line lead to give her an update. JESSICA contacted Vanessa with [facility] to give her an update. Will continue to monitor.
[2020-05-15 16:13] VITALS: BP 171/67; PULSE 67; TEMP 98.2
--- NOTE | 2020-05-15 17:20 | NUR ---
IV FLUIDS RATE DECREASED AT THIS TIME FROM 83 MLS/HR TO 50 MLS/HR PER DR. STEPHENS ORDERS.
--- NOTE | 2020-05-15 19:00 | NUR ---
REPORT GIVEN TO ESTRELLA PLATA.
--- NOTE | 2020-05-15 19:21 | NUR ---
PATIENT RESTING IN BED DURING CHANGE OF SHIFT REPORT RECEIVED FROM DAY SHIFT NURSEJUAN. TOLERATED SUPPER WITH NO FURTHER C/O NAUSEA. IVF INFUSING WITH NO PROBLEMS, PATIENT UP TO BSC INDEPENDENTLY IN ROOM WITH NO PROBLEMS.
[2020-05-15 19:47] VITALS: BP 161/67; PULSE 75; TEMP 98.9
[2020-05-15 23:25] VITALS: BP 159/61; PULSE 72; TEMP 98.8
--- NOTE | 2020-05-16 02:33 | NUR ---
PATIENT UP TO BSC WITH NO PROBLEMS SO FAR TONIGHT, DENIES ANY NEEDS WHEN ASKED. IVF INFUSING WITH NO PROBLEMS. DENIES PASSING FLATUS WHEN ASKED AROUND HS.
[2020-05-16 03:21] VITALS: BP 158/64; PULSE 72; TEMP 98.3
[2020-05-16 06:34] LABS: HEMOGLOBIN 10.7 g/dl (12.5-16.0); MEAN CELL VOLUME 88 fl (80.0-100.0); MEAN CORPUSCULAR HEMOGLOBIN 29 pg (27.0-31.0); MEAN CORPUSCULAR HGB CONC 33 g/dl (33.0-37.0); MEAN PLATELET VOLUME 9.5 fl (7.4-10.4); PLATELET COUNT 202 K/mm3 (130-400); RED BLOOD COUNT 3.71 M/mm3 (4.10-5.30); REDCELL DISTRIBUTION WIDTH-CV 13.2 % (11.5-14.5)
[2020-05-16 06:43] LABS: HEMATOCRIT 32.7 % (37.0-47.0)
[2020-05-16 06:53] LABS: BILIRUBIN,TOTAL 0.5 mg/dL (0.0-1.0); CALCIUM 9.2 mg/dL (8.4-10.2); CREATININE, serum 0.49 (0.52-1.25); POTASSIUM 3.1 mmol/L (3.4-5.0); TOTAL PROTEIN 6.1 gm/dL (6.4-8.2)
--- NOTE | 2020-05-16 07:06 | NUR ---
PATIENT RESTING IN BED DURING CHANGE OF SHIFT REPORT GIVEN TO DAY SHIFT NURSEALVARO.
[2020-05-16 07:28] LABS: BAND 9 % (0-10); EOSINOPHIL 2 % (0-4); LYMPHOCYTE 20 % (20.0-51.0); METAMYELOCYTE 1 % (0-0); NEUTROPHILS 65 % (42.0-75.2); PLATELET ESTIMATE NORMAL (NORMAL)
[2020-05-16 07:45] VITALS: BP 124/92; PULSE 48; TEMP 98
--- NOTE | 2020-05-16 10:00 | NUR ---
Patient alert and oriented, answers questions appropriately. See assessment. Abdomen soft, non tender, non distended. Bowel sounds active x4 quads. +Flatus and stool in ostomy bag. Ileostomy pink and protruding. AAMIR drain to RLQ compressed, scant amount of gonzales drainage noted. Lap sites with edges well approximated, no redness or drainage noted. Post op exercises reviewed with patient. No c/o at this time.
--- NOTE | 2020-05-16 10:07 | NUR ---
PT informed JESSICA that the patient has been using a 4WW during sessions. JESSICA met with the patient to discuss options to order walkers. The patient states she found a 4WW on [email or web address] and it is $50. She states she will order it herself. Will continue to monitor.
--- NOTE | 2020-05-16 10:54 | NUR ---
The patient is to tentatively discharge home today, 05/16 with nursing services from [facility]. SW faxed orders. There are no additional needs at this time.
[2020-05-16 12:09] VITALS: BP 129/93; PULSE 108; TEMP 97.3
[2020-05-16 12:18] VITALS: BP 149/70; PULSE 67; TEMP 99
--- NOTE | 2020-05-16 14:04 | NUR ---
Dr Oswald here to see patient.
[2020-05-16] MEDS ORDERED: ZOFRAN 4MG T4 MG/TAB PO (14:26)
--- NOTE | 2020-05-16 15:40 | NUR ---
Discharge instructions reviewed with patient and spouse, verbalized understanding. Ostomy and drain care reviewed with patient, verbalized understanding. Discharged via wheelchair to auto/home with spouse at 1540.
== END 2020-05-16 15:40 | disposition home or self-care (01) | DRG 330 ==
LOC: COL.ER 09:55 → SURG 12:43
PROVIDERS: Emergency Medicine; Surgery; ADMIT Surgery
PROC: 0D1B0Z4 Bypass Ileum to Cutaneous, Open Approach (ICD-10-PCS; principal; 2020-05-09)
PROC: 8E0W4CZ Robotic Assisted Procedure of Trunk Region, Percutaneous Endoscopic Approach (ICD-10-PCS; 2020-05-09)
DX: K91.89 Other postprocedural complications and disorders of digestive system (principal); E87.1 Hypo-osmolality and hyponatremia; I10 Essential (primary) hypertension; E78.00 Pure hypercholesterolemia, unspecified; I48.91 Unspecified atrial fibrillation; Z79.01 Long term (current) use of anticoagulants; Z88.0 Allergy status to penicillin; Z88.1 Allergy status to other antibiotic agents; Y83.2 Surgical operation with anastomosis, bypass or graft as the cause of abnormal reaction of the patient, or of later complication, without mention of misadventure at the time of the procedure
CPT/HCPCS: A4314; A9284; G0378; J1100; J1170; J1650; J1885; J1956; J2185; J2405; J2550; J2704; J3010; J7030; J7042; J7120; Q9967

== ENCOUNTER → 2020-06-16 | Outpatient (CLI) | payer OTHER ==
[~2020-06-16] MED LIST changes: +ZOFRAN 4MG T4 MG/TAB PO
== END ==
LOC: COL.RAD 07:17
DX: K91.89 Other postprocedural complications and disorders of digestive system (principal)

== ENCOUNTER 2020-07-23 11:11 | Inpatient (IN) | payer OTHER, MEDICARE ==
[~2020-07-23] VITALS: Ht 165.1 cm; Wt 79.5 kg
[2020-08-05] VITALS (12 sets, daily range): BP systolic 132–162; BP diastolic 53–89; PULSE 59–75; TEMP 97.6–98.9
[2020-08-05] MEDS ORDERED: NORVASC 5MG5 MG/TAB PO (12:40)
[2020-08-05] MEDS ORDERED: ELIQUIS 5MG PO (12:40)
[2020-08-05] MEDS ORDERED: ALDACTONE 25MG25 M1 PO (12:42)
[2020-08-05] MEDS ORDERED: BETAPACE 120MG120 MG PO (12:42)
--- NOTE | 2020-08-05 12:43 | NUR ---
TO RM 7 PER OWN WILL STEADY GAIT. ALERT ORIENTED X3, VERBALIZED UNDERSTANDING AND SIGNED CONSENT.
--- NOTE | 2020-08-05 12:48 | NUR ---
CALL LIGHT IN REACH AT BEDSIDE.
--- NOTE | 2020-08-05 14:36 | NUR ---
DR STEPHENS INTO TALK WITH PATIENT.
--- NOTE | 2020-08-05 17:05 | NUR ---
PT ARRIVED TO ROOM WITH AT BEDSIDE, PT REPORTING PAIN IN ABD 05/30, WILL LOOK FOR PAIN MEDS TO GIVE, PT DROWSY, ASKED IF HE GOT SLEEP 3X. PT KNOWS WHERE SHE IS AND WHO SHE IS. DRESSING CHECKED WITH PACU NURSE AND SHE SAID THAT BLOOD ON BANDAGE WAS NEW FROM THE TRANSFER UP TO ROOM. PT ON 3L OXYGEN. PT STATES SHE IS TOO DROWSY TO DO MED REC AT THIS TIME.
--- NOTE | 2020-08-05 18:04 | NUR ---
MED REC COMPLETED VIA LIST FROM PT PHONE
--- NOTE | 2020-08-05 18:29 | NUR ---
PT STATES PAIN IS CONTROLLED AT A 3/10 RIGHT NOW. PT PLEASANT, HS REG, LUNG SOUNDS CTA, SCD'S ATTACHED, INCISION HAS NOT BLED SINCE TRANSFER TO FLOOR, VITALS STABLE, BS HYPOACTIVE. NO OTHER NEEDS AT THIS TIME.
--- NOTE | 2020-08-05 19:08 | NUR ---
upon assessing wound with night custodian pt has more bleeding than previous check. night custodian nurse to change dressing. no other needs
--- NOTE | 2020-08-05 19:57 | NUR ---
Assessment complete. Patient is alert and oriented and not drowsy. Pain level is 2/10 after receiving tramadol earlier. RLQ surgical dressing has increased bleeding and is reinforced with 4x4 and tape. Patient wearing 2L 02. Tolerating PO intake with no N/V. Will continue to monitor.
[2020-08-06 03:33] VITALS: BP 123/52; PULSE 70; TEMP 97.6
--- NOTE | 2020-08-06 05:52 | NUR ---
Patient has had a restful night with no need for additional pain medication. Surgical site has ceased bleeding and has not required a second reinforcing.
[2020-08-06 07:52] VITALS: BP 120/53; PULSE 61; TEMP 98
--- NOTE | 2020-08-06 10:49 | NUR ---
Patient resting in bed. rounded & orders obtained. Patient up and we ambulated halls & she did well. Patient wanting to avoid narcotics, tylenol for abdominal incisional pain. Insision site with minimal shadowing. Patient reports passing small amount of flatus & belching. Patient progressed to general diet, no complaints of nausea. Will continue to closely monitor.
[2020-08-06 11:18] VITALS: BP 133/52; PULSE 65; TEMP 97.7
--- NOTE | 2020-08-06 11:37 | NUR ---
Plastic Duplicator met with the patient to complete initake. The patient lives in [place] with her Davis. The patient denies DME use and is independent with ADLs. The patient's PCP is Dr. Miguel and patient receives medications from [facility] with no difficulties. The patient has advanced directives in the EMR. The patient plans to return home at discharge and she will drive herself. The patient was receiving [facility] due to an ileostomy. However, this hosptialization she is her for an ileostomy takedown. She inquired the need for HHS since she will no longer have her ileostomy. JESSICA discussed the benefits of having a nurse follow along with her care after discharge. She was agreeable to continue with HHS at discharge. JESSICA collaborated the above information with the patient's nurse. Will continue to monitor.
--- NOTE | 2020-08-06 12:23 | NUR ---
Lead Ramp Agent contacted [facility]. The confirmed they were following the patient for Iloestomy care. They were agreeable to return to services at discharge.
--- NOTE | 2020-08-06 15:02 | NUR ---
Rating pain 7/10 in right lower abd and would like Tylenol. Tylenol administered as prescribed. Patient lying in bed watching TV. Denies additional needs at this time. Patient reported she has had three loose stools.
[2020-08-06 15:45] VITALS: BP 155/51; PULSE 62; TEMP 97.5
--- NOTE | 2020-08-06 18:46 | NUR ---
Patient resting in bed, her spouse at bedside. Tylenol continues to manage her pain, but she reports she may take something stronger tonight. Patient is having liquid loose dark stools, she has had 5 stools. Passing flatus. Int.
[2020-08-06 19:28] VITALS: BP 135/94; PULSE 66; TEMP 98
--- NOTE | 2020-08-06 20:00 | NUR ---
Report received, assumed care for awake overnight monitor. Assessment complete. A&Ox3. VS stable. Denies nausea/shortness of breath. Rating pian 6/10 on pain scale to right side of abdomen incision described as burning and throbbing. Tramadol given per dr order. Has had several BMs today. Voiding without difficulty. Tolerating PO. INT to left hand flushes without difficulty. Plan of care discussed for pain control/HS meds/ambulation. Verbalizes understanding/denies questions/concerns. Call light in reach. Will monitor.
[2020-08-06 23:55] VITALS: BP 120/52; PULSE 62; TEMP 98
[2020-08-07 04:19] VITALS: BP 126/48; PULSE 63; TEMP 97.9
--- NOTE | 2020-08-07 04:24 | NUR ---
Rested well this shift after receiving one dose of tramadol for pain. Denied nausea/shortness of breath. VS remained stable. Tolerating PO. Voiding without difficulty. Dressing with a small amount of drainage noted. Denies needs. Call light in reach. Will monitor.
--- NOTE | 2020-08-07 07:33 | NUR ---
Sitting up in bed with eyes open watching TV. Rates pain to right abd 2/10, increases to 7/10 with activity. Would like Tylenol if able to have, will administer as prescribed. Dressing to right abd with discharge noted through the dressing. Patient says that she is passing gas and was having bowel movements yesterday. Is hoping to go home today. Denies any additional needs at this time.
[2020-08-07 07:41] VITALS: BP 137/59; PULSE 62; TEMP 98.1
--- NOTE | 2020-08-07 10:31 | NUR ---
Lying in bed. Patient says that she is doing well at this time, just resting. Denies pain or any further needs.
[2020-08-07 11:58] VITALS: BP 139/49; PULSE 69; TEMP 98.2
--- NOTE | 2020-08-07 13:07 | NUR ---
First visit from the experimental plastics fabricator. No needs right now.
--- NOTE | 2020-08-07 15:22 | NUR ---
Lying in bed with eyes open. Patient is dressed in her regular clothes, says that she has packed all of her personal belongings. Is hoping to go home this evening. Denies pain. Says she is comfortable at this time. Provided a diet pepsi per patient request. Denies any additional needs.
[2020-08-07 16:50] VITALS: BP 138/69; PULSE 67; TEMP 98.7
[2020-08-07] MEDS ORDERED: ULTRAM 50MG TAB50 MG PO (17:28)
--- NOTE | 2020-08-07 17:48 | NUR ---
Review discharge instructions with patient. Questions answered. Patient verbalizes understanding and signs discharge paperwork. Discharge packet provided to the patient. Patient' ride is at ER entrance to pick her up. Patient assisted out to POV via wheelchair by INDIGO Brown. Patient had all personal belongings.
== END 2020-08-07 17:54 | disposition home or self-care (01) | DRG 331 ==
LOC: INPTSU 08-05 11:17 → SURG 08-05 13:30
PROVIDERS: ADMIT Surgery
PROC: 0DBB0ZZ Excision of Ileum, Open Approach (ICD-10-PCS; principal; 2020-08-05 13:30)
DX: K91.89 Other postprocedural complications and disorders of digestive system (principal); I10 Essential (primary) hypertension; E78.00 Pure hypercholesterolemia, unspecified; I48.91 Unspecified atrial fibrillation; Z88.0 Allergy status to penicillin; Z88.1 Allergy status to other antibiotic agents; Y83.2 Surgical operation with anastomosis, bypass or graft as the cause of abnormal reaction of the patient, or of later complication, without mention of misadventure at the time of the procedure
CPT/HCPCS: J0360; J0690; J1100; J1170; J1885; J2405; J2704; J3010; J7120

== ENCOUNTER → 2020-07-23 | Outpatient (CLI) | payer OTHER | LOC: COL.RAD 08:24 | DX: K91.89 Other postprocedural complications and disorders of digestive system (principal) ==

== ENCOUNTER 2020-08-11 18:39 | Observation (INO) | payer OTHER, MEDICARE ==
[~2020-08-11] VITALS: Ht 157.5 cm; Wt 76.4 kg
[2020-08-11 19:26] LABS: BASO % 0.4 % (0.0-2.0); EOS # 0.1 (0.0-0.7); EOS % 1.4 % (0-4.0); GRAN # 7.2 (1.4-6.5); GRAN % 73.2 % (42.2-75.2); HEMOGLOBIN 10.8 g/dl (12.5-16.0); LYMPH # 1.8 (1.2-3.4); LYMPH % 18.3 % (20.0-51.0); MEAN CELL VOLUME 89 fl (80.0-100.0); MEAN CORPUSCULAR HEMOGLOBIN 29 pg (27.0-31.0); MEAN CORPUSCULAR HGB CONC 33 g/dl (33.0-37.0); MEAN PLATELET VOLUME 9.1 fl (7.4-10.4); MONO # 0.6 (0.1-0.6); MONO % 6.4 % (1.7-9.3); PLATELET COUNT 279 K/mm3 (130-400); RED BLOOD COUNT 3.72 M/mm3 (4.10-5.30); REDCELL DISTRIBUTION WIDTH-CV 14.3 % (11.5-14.5)
[2020-08-11 19:30] LABS: HEMATOCRIT 33.1 % (37.0-47.0)
[2020-08-11 19:32] LABS: INR 1.3 (0.8-3.0); PROTHROMBIN TIME 15.1 SECONDS (9.7-12.8)
[2020-08-11 19:37] LABS: ALANINE AMINOTRANSFERASE 22 U/L (4-34); ALBUMIN 4.4 gm/dL (3.5-5.0); ALKALINE PHOSPHATASE 60 U/L (50-136); ANION GAP 9 mmol/L (7-16); AST,SGOT 36 U/L (15-37); BILIRUBIN,TOTAL 0.7 mg/dL (0.0-1.0); BLOOD UREA NITROGEN 15 mg/dL (7-17); CALCIUM 10.3 mg/dL (8.4-10.2); CARBON DIOXIDE 28 mmol/L (22-30); CHLORIDE 96 mmol/L (98-107); CREATINE KINASE 34 U/L (30-135); CREATININE, serum 0.75 (0.52-1.25); GLUCOSE 111 mg/dL (74-106); LIPASE 45 U/L (23-300); POTASSIUM 4.3 mmol/L (3.4-5.0); SODIUM 133 mmol/L (137-145); TOTAL PROTEIN 7.5 gm/dL (6.4-8.2)
[2020-08-11 19:47] LABS: TROPONIN-I < 0.012 ng/mL (0.000-0.035)
[2020-08-11 22:15] VITALS: BP 124/70; PULSE 67; TEMP 97.9
[2020-08-12 03:15] VITALS: BP 115/49; PULSE 68
[2020-08-12 07:10] VITALS: BP 104/41; PULSE 66; TEMP 98.1
--- NOTE | 2020-08-12 09:11 | NUR ---
Initial visit; Patient states she is doing well and thanked Clay Plant Treater for visiting her and keeping her in her prayers.
--- NOTE | 2020-08-12 09:50 | NUR ---
0830 THIS RN IN PATIENT ROOM. PATIENT STATES SHE SAVED ANOTHER BOWEL MOVEMENT FOR NURSE TO LOOK AT PER DOCTOR'S REQUEST. LARGE WATER BOWEL MOVEMENT NOTED IN TOILET.
[2020-08-12 12:30] VITALS: BP 120/45; PULSE 60; TEMP 98.2
--- NOTE | 2020-08-12 12:51 | NUR ---
1230 PATIENT REPORTS SEVERAL MORE LOOSE BOWEL MOVEMENTS. NO PAIN
[2020-08-12 17:20] VITALS: BP 132/45; PULSE 68; TEMP 97.9
[2020-08-12 19:30] VITALS: BP 144/47; PULSE 74; TEMP 98
[2020-08-13 07:35] VITALS: BP 138/77; PULSE 71; TEMP 97.9
[2020-08-13 07:52] LABS: BASO % 0.5 % (0.0-2.0); EOS # 0.2 (0.0-0.7); EOS % 2.8 % (0-4.0); GRAN # 4.1 (1.4-6.5); GRAN % 63.7 % (42.2-75.2); LYMPH # 1.6 (1.2-3.4); MEAN CELL VOLUME 90 fl (80.0-100.0); MEAN CORPUSCULAR HGB CONC 32 g/dl (33.0-37.0); MONO # 0.5 (0.1-0.6); MONO % 7.7 % (1.7-9.3); PLATELET COUNT 237 K/mm3 (130-400); RED BLOOD COUNT 3.06 M/mm3 (4.10-5.30); REDCELL DISTRIBUTION WIDTH-CV 14.5 % (11.5-14.5)
[2020-08-13 07:53] LABS: HEMATOCRIT 27.6 % (37.0-47.0); HEMOGLOBIN 8.8 g/dl (12.5-16.0); MEAN CORPUSCULAR HEMOGLOBIN 29 pg (27.0-31.0)
[2020-08-13 08:03] LABS: CALCIUM 8.8 mg/dL (8.4-10.2); CREATININE, serum 0.53 (0.52-1.25); POTASSIUM 3.4 mmol/L (3.4-5.0)
--- NOTE | 2020-08-13 09:41 | NUR ---
0915 DISCHARGE INSTRUCTIONS REVIEWED WITH PATIENT. PATIENT VERBALIZED UNDERSTANDING. INT DISCONTINUED AT THIS TIME. [id number] ALL PERSONAL BELONGINGS GATHERED FROM PATIENT ROOM. PATIENT LEFT AMBULATORY AND IN NO APPARENT DISTRESS. PATIENT ACCOMPANIED BY THIS RN.
--- NOTE | 2020-08-13 10:27 | NUR ---
Patient discharged home today. Worker spoke with Radha with [facility] as they were providing services prior to hospitalization. Worker faxed clinicals and home health will resume their services. Patient lives with spouse and has been independent with all of her activities of daily living. Patient's primary care provider is Dr Cha. No unmet needs identified at this time.
== END 2020-08-13 09:25 | disposition home or self-care (01) ==
LOC: COL.ER 18:39 → OB 21:29
PROVIDERS: Emergency Medicine; Surgery; ADMIT Surgery
DX: R10.9 Unspecified abdominal pain (principal); I10 Essential (primary) hypertension; E78.00 Pure hypercholesterolemia, unspecified; I48.91 Unspecified atrial fibrillation; Z90.49 Acquired absence of other specified parts of digestive tract; Z90.710 Acquired absence of both cervix and uterus; Z79.01 Long term (current) use of anticoagulants; Z87.891 Personal history of nicotine dependence; Z88.0 Allergy status to penicillin; Z88.1 Allergy status to other antibiotic agents; Z88.5 Allergy status to narcotic agent; Z88.8 Allergy status to other drugs, medicaments and biological substances
CPT/HCPCS: G0378; J2060; J2270; J2405; J7030; Q9967

== ENCOUNTER 2022-03-28 00:15 | Observation (INO) | payer OTHER ==
[~2022-03-28] VITALS: Ht 157.5 cm; Wt 92.2 kg
[2022-03-28 00:41] LABS: BASO % 0.5 % (0.0-2.0); EOS # 0.2 K/mm3 (0.0-0.7); EOS % 1.8 % (0.0-4.0); GRAN # 6.2 K/mm3 (1.4-6.5); GRAN % 72.6 % (42.2-75.2); HEMATOCRIT 40.7 % (37.0-47.0); HEMOGLOBIN 13.5 g/dl (12.5-16.0); LYMPH # 1.6 K/mm3 (1.2-3.4); LYMPH % 18.5 % (20.0-51.0); MEAN CELL VOLUME 85 fl (80.0-100.0); MEAN CORPUSCULAR HEMOGLOBIN 28 pg (27-31); MEAN CORPUSCULAR HGB CONC 33 g/dl (33.0-37.0); MEAN PLATELET VOLUME 9.2 fl (7.4-10.4); MONO # 0.5 K/mm3 (0.1-0.6); PLATELET COUNT 210 K/mm3 (130-400); RED BLOOD COUNT 4.78 M/mm3 (4.10-5.30); REDCELL DISTRIBUTION WIDTH-CV 13.8 % (11.5-14.5)
[2022-03-28 00:54] LABS: INR 1.3 (0.8-3.0)
[2022-03-28 01:03] LABS: ALANINE AMINOTRANSFERASE 17 U/L (0-55); ALBUMIN 4.5 gm/dL (3.4-4.8); ALKALINE PHOSPHATASE 62 U/L (40-150); ANION GAP 13 mmol/L (7-16); AST,SGOT 25 U/L (5-34); BILIRUBIN,TOTAL 0.5 mg/dL (0.2-1.2); BLOOD UREA NITROGEN 18 mg/dL (10-20); C-REACTIVE PROTEIN 1.34 mg/dL (0.00-0.50); CALCIUM 11.3 mg/dL (8.4-10.2); CARBON DIOXIDE 22 mmol/L (23-31); CHLORIDE 103 mmol/L (98-107); CREATINE KINASE 73 U/L (29-168); CREATININE, serum 0.79 mg/dL (0.57-1.11); GLUCOSE 146 mg/dL (70-99); LIPASE 33 U/L (8-78); POTASSIUM 4.2 mmol/L (3.5-4.5); SODIUM 138 mmol/L (136-145); TOTAL PROTEIN 7.8 gm/dL (6.2-8.1)
[2022-03-28 01:12] LABS: TROPONIN-I < 0.010 ng/mL (0.00-0.033)
--- NOTE | 2022-03-28 03:16 | NUR ---
RECEIVED REPORT FROM Miguel DE LA ROSA, CYRUS. PATIENT'S ARRIVAL PENDING FOR ADMIT TO ROOM 324 FROM Ry
--- NOTE | 2022-03-28 03:36 | NUR ---
PATIENT ADMIT TO ROOM 324 VIA E.D. CART, ACCOMPANIED BY E.R. STAFF. UP TO BATHROOM, AMBULATING WITH NO COMPLAINTS OF UPPER ABD PAIN. PUT BACK ON OXYGEN. DENIES PASSING GAS THROUGH RECTUM, DENIES PROBLEMS WITH VOIDING AT THIS TIME. IV FLUIDS INFUSING WITH NO PROBLEMS.
[2022-03-28 04:23] VITALS: BP 155/54; PULSE 58; TEMP 98
--- NOTE | 2022-03-28 07:13 | NUR ---
Change of shift report given to day shift RNNiurka.
[2022-03-28 07:50] VITALS: BP 160/56; PULSE 57; TEMP 98.2
--- NOTE | 2022-03-28 08:00 | NUR ---
PATIENT IS A&O. VSS. NO C/O ABD PAIN. PATIENT DID REPORT SL NAUSEA AFTER ACTIVITY THIS AM, NO EMESIS. GAVE PRN ZOFRAN PER PATIENT REQUEST. NPO. ABD IS ROUND, SOFT AND WITH HYPO BOWL SOUNDS. PATIENT REPORTS SHE HAS PASSED GAS. IV FLUIDS INFUSIN INTO LEFT HAND IV. VOIDING SUFFICIENT AMOUNTS. HEAD TO TOE ASSESSMENT COMPLETE. NO OTHER NEEDS. CALL LIGHT IN REACH.
[2022-03-28 12:04] VITALS: BP 138/60; PULSE 62; TEMP 97.9
--- NOTE | 2022-03-28 13:45 | NUR ---
PATIENT DID NOT TOLERATE DIET ADVANCEMENT. AFTER TRYING FULL LIQUIDS PATIENT IS NOW C/O ABD PAIN AND BLOATING. NOTIFIED PROVIDER. PATIENT REQUESTING SOMETHING FOR PAIN, GAVE PRN IV MORPHINE AND WARM BLANKET APPLIED TO ABD. PATIENT RESTING IN BED. IS GOING HOME FOR THE DAY. CALL LIGHT IN REACH.
--- NOTE | 2022-03-28 14:07 | NUR ---
Lathe Set Up Person met with patient, Tanya, for intake assessment/discharge planning: Patient presents alert and oriented, and describes her home is an accessible house for she and her spouse with whom she lives, Davis Sher ([phone]). She reports she is independent in her ADLs and IADLs and she denies use of any durable medical equipment, including no oxygen needs. 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 Kimberley Miguel, and she obtains her medications with no difficulties at [facility]. Her spouse and her adult son Andrea Sanchez ([phone]) are both identified as her DPOA-HC and the paperwork is filed in her EMR. She would like a copy for herself, "Seems like a good thing to have in my hands." Lathe Set Up Person makes a copy of patient DPOA-HC paperwork on file and gives to her, contacting nursing staff to notify of her request for beeping IV machine to cease so she may nap. She expresses no other questions or concerns and she would like to return to home at discharge. *Discharge plan: To home with spouse*
[2022-03-28 15:00] VITALS: BP 132/35; PULSE 62; TEMP 97.9
[2022-03-28 15:01] LABS: BASO % 0.3 % (0.0-2.0); EOS # 0.1 K/mm3 (0.0-0.7); EOS % 0.9 % (0.0-4.0); GRAN # 4.8 K/mm3 (1.4-6.5); GRAN % 73.5 % (42.2-75.2); HEMOGLOBIN 11.7 g/dl (12.5-16.0); LYMPH # 1.1 K/mm3 (1.2-3.4); LYMPH % 16.9 % (20.0-51.0); MEAN CELL VOLUME 88 fl (80.0-100.0); MEAN CORPUSCULAR HEMOGLOBIN 28 pg (27-31); MEAN CORPUSCULAR HGB CONC 32 g/dl (33.0-37.0); MEAN PLATELET VOLUME 9.7 fl (7.4-10.4); MONO # 0.5 K/mm3 (0.1-0.6); MONO % 8.1 % (1.7-9.3); PLATELET COUNT 197 K/mm3 (130-400); RED BLOOD COUNT 4.15 M/mm3 (4.10-5.30); REDCELL DISTRIBUTION WIDTH-CV 13.8 % (11.5-14.5)
[2022-03-28 15:05] LABS: HEMATOCRIT 36.4 % (37.0-47.0)
--- NOTE | 2022-03-28 18:30 | NUR ---
PATIENT REPORTS PASSING 3 SMALL HARD STOOLS AFTER SUPP
[2022-03-28 19:55] VITALS: BP 136/58; PULSE 60; TEMP 98.1
[2022-03-28 23:17] VITALS: BP 110/48; PULSE 56; TEMP 98.4
--- NOTE | 2022-03-29 02:06 | NUR ---
PATIENT ALERT AND ORIENTED. HS MEDS PER EMAR. C/O MODERATE PAIN AND PRN MORPHINE GIVEN. REPORTS HAVING EXPLOSIVE DIARRHEA THAT WAS MUSTARD COLORED. INT L HAND PATENT AND FLUSHES. DENIES ADDITIONAL NEEDS AT THIS TIME, CURRENTLY RESTING IN BED, RR EVEN AND UNLABORED, CALL LIGHT IN REACH.
[2022-03-29 03:39] VITALS: BP 162/55; PULSE 68; TEMP 98.3
[2022-03-29 07:07] LABS: BASO % 0.3 % (0.0-2.0); EOS # 0.1 K/mm3 (0.0-0.7); EOS % 1.9 % (0.0-4.0); GRAN # 3.9 K/mm3 (1.4-6.5); GRAN % 65.6 % (42.2-75.2); HEMOGLOBIN 11.7 g/dl (12.5-16.0); LYMPH # 1.2 K/mm3 (1.2-3.4); LYMPH % 20.9 % (20.0-51.0); MEAN CELL VOLUME 89 fl (80.0-100.0); MEAN CORPUSCULAR HEMOGLOBIN 29 pg (27-31); MEAN CORPUSCULAR HGB CONC 32 g/dl (33.0-37.0); MEAN PLATELET VOLUME 9.9 fl (7.4-10.4); MONO # 0.7 K/mm3 (0.1-0.6); MONO % 11.1 % (1.7-9.3); PLATELET COUNT 177 K/mm3 (130-400); REDCELL DISTRIBUTION WIDTH-CV 13.8 % (11.5-14.5)
[2022-03-29 07:09] LABS: HEMATOCRIT 36.6 % (37.0-47.0)
[2022-03-29 07:23] LABS: CALCIUM 8.6 mg/dL (8.4-10.2); CREATININE, serum 0.74 mg/dL (0.57-1.11); POTASSIUM 3.7 mmol/L (3.5-4.5)
[2022-03-29 07:35] VITALS: BP 134/50; PULSE 59; TEMP 98.8
--- NOTE | 2022-03-29 08:00 | NUR ---
PATIENT IS A&O. VSS. PATIENT REPORTS FEELING BETTER TODAY. NO C/O N/V OR ABD PAIN. ABD IS ROUND, SOFT AND WITH POSITIVE BOWL SOUNDS. TOLERATING CLEARS. LEFT HAND IV TO INT. HEAD TO TOE ASSESSMENT COMPLETE. INDEPENDENT IN ROOM. CALL LIGHT IN REACH. NO OTHER NEEDS.
--- NOTE | 2022-03-29 09:32 | NUR ---
Initial visit; Patient thanked Plastics Bench Mechanic for looking in on her and offering God's blessings.
[2022-03-29 11:03] VITALS: BP 120/59; PULSE 58; TEMP 98.8
--- NOTE | 2022-03-29 14:40 | NUR ---
PATIENT NOW HAVING MULTIPLE SOFT-LOOSE STOOLS. TOLERATING MECH SOFT DIET WITH NO C/O NAUSEA OR ABD PAIN.
[2022-03-29 15:28] VITALS: BP 118/50; PULSE 62; TEMP 97.9
[2022-03-29 20:01] VITALS: BP 126/54; PULSE 69; TEMP 97.9
--- NOTE | 2022-03-29 22:14 | NUR ---
Received report from day shift. Patient alert and oriented x4. VSS. Patient here for SBO. Patient denies pain at this time. Patient tolerated PM meal well without any issues. Assessment performed. PM med administered. Patient resting in bed with call light near.
[2022-03-30 00:11] VITALS: BP 133/53; PULSE 59; TEMP 98.9
[2022-03-30 04:22] VITALS: BP 102/72; PULSE 53; TEMP 97.7
[2022-03-30 07:48] VITALS: BP 143/53; PULSE 54; TEMP 97.8
[2022-03-30 11:32] VITALS: BP 140/58; PULSE 54; TEMP 98
--- NOTE | 2022-03-30 14:55 | NUR ---
PATIENT MEET DISCHARGE CRITERIA, SEE ORDERS. GAVE DISCHARGE INSTRUCTIONS AND DISCUSSED F/U APT. ANSWERED QUESTIONS/CONCERNS. DC'D LEFT HAND IV, COVERED SITE WITH GAUZE & COBAN. PATIENT IS DRESSED, PACKED AND ESCORTED OUT WITH VIA AMBULATORY.
== END 2022-03-30 14:55 | disposition home or self-care (01) ==
LOC: COL.ER 00:15 → SURG 02:48
PROVIDERS: Emergency Medicine; ADMIT Surgery
DX: K46.9 Unspecified abdominal hernia without obstruction or gangrene (principal); K56.609 Unspecified intestinal obstruction, unspecified as to partial versus complete obstruction; Z79.01 Long term (current) use of anticoagulants
CPT/HCPCS: G0378; J2270; J2405; J7030; Q9967

== ENCOUNTER 2022-05-14 07:52 | Day surgery (SDC) | payer OTHER ==
[2022-05-14] VITALS (12 sets, daily range): BP systolic 111–186; BP diastolic 58–102; PULSE 49–58; TEMP 98.4
[~2022-05-14] VITALS: Ht 157.5 cm; Wt 92.2 kg
[2022-05-14 08:21] LABS: HEMATOCRIT 40.5 % (37.0-47.0); HEMOGLOBIN 13.3 g/dl (12.5-16.0); MEAN CELL VOLUME 86 fl (80.0-100.0); MEAN CORPUSCULAR HEMOGLOBIN 28 pg (27-31); MEAN CORPUSCULAR HGB CONC 33 g/dl (33.0-37.0); MEAN PLATELET VOLUME 9.1 fl (7.4-10.4); PLATELET COUNT 229 K/mm3 (130-400); REDCELL DISTRIBUTION WIDTH-CV 13.8 % (11.5-14.5)
[2022-05-14 08:38] LABS: CREATININE, serum 0.77 mg/dL (0.57-1.11); POTASSIUM 4.2 mmol/L (3.5-4.5)
--- NOTE | 2022-05-14 09:40 | NUR ---
See merge for all medication, assessment, intervention, and vital sign times.
--- NOTE | 2022-05-14 15:30 | NUR ---
DISCHARGE EDUCATION GIVEN TO PT, PT VERBALIZES UNDERSTANDING. PT ESCORTED TO EXIT VIA WHEELCHAIR.
== END 2022-05-14 15:30 | disposition home or self-care (01) ==
LOC: COL.CAR 07:52
PROVIDERS: Internal Medicine Cardiovascular Disease
DX: R94.39 Abnormal result of other cardiovascular function study (principal); I10 Essential (primary) hypertension; I48.0 Paroxysmal atrial fibrillation; E78.2 Mixed hyperlipidemia; Z79.01 Long term (current) use of anticoagulants; Z79.899 Other long term (current) drug therapy; Z87.891 Personal history of nicotine dependence
CPT/HCPCS: J1644; J2250; J3010; Q9967

== ENCOUNTER 2022-06-08 10:15 | Day surgery (SDC) | payer MEDICARE, OTHER ==
[~2022-06-08] VITALS: Ht 154.9 cm; Wt 92.5 kg
[2022-06-08] VITALS (7 sets, daily range): BP systolic 128–148; BP diastolic 33–67; PULSE 50–62; TEMP 97.2–98
[2022-06-08] MEDS ORDERED: ZOLOFT 50MG50 MG PO (10:58)
[2022-06-08] MEDS ORDERED: ULTRAM 50MG TAB50 MG PO (13:35)
--- NOTE | 2022-06-08 15:15 | NUR ---
PT TO BAY 5 PER CART FROM PACU. VS OBTAINED. PT TOLERATING ICE CHIPS.
--- NOTE | 2022-06-08 16:45 | NUR ---
PT RATES PAIN AT 5/10. TRAMADOL 50MG AND MOTRIN 600MG GIVEN TO PT. PT HAS BEEN APPLYING TO AREA FOR THE PAST 20 MIN. STATES IT WAS HELPING SOME.
--- NOTE | 2022-06-08 17:25 | NUR ---
DISCHARGE EDUCATION COMPLETED WITH PT AND HER . VERBALIZED UNDERSTANDING OF HOME AND FOLLOW UP CARE. ALL QUESTIONS ANSWERED. DISCHARGE PAPERWORK GIVEN TO PT.
--- NOTE | 2022-06-08 17:35 | NUR ---
[facility] OFF UNIT PER WHEELCHAIR. PT DISCHARGE TO HOME WITH PER PERSONAL VEHICLE.
== END 2022-06-08 17:35 | disposition home or self-care (01) ==
LOC: SDCO 10:15
DX: K43.2 Incisional hernia without obstruction or gangrene (principal); I48.91 Unspecified atrial fibrillation; I10 Essential (primary) hypertension; E78.00 Pure hypercholesterolemia, unspecified; Z93.2 Ileostomy status; Z90.49 Acquired absence of other specified parts of digestive tract; Z79.01 Long term (current) use of anticoagulants
CPT/HCPCS: C1781; J0690; J1100; J1170; J2250; J2405; J2704; J3010; J7120

== ENCOUNTER 2023-01-14 22:33 | Inpatient (IN) | payer MEDICARE ==
[~2023-01-14] VITALS: Ht 157.5 cm; Wt 97.3 kg
[2023-01-14 23:08] LABS: BASO % 0.5 % (0.0-2.0); EOS # 0.1 K/mm3 (0.0-0.7); GRAN # 6.5 K/mm3 (1.4-6.5); HEMATOCRIT 42.1 % (37.0-47.0); HEMOGLOBIN 13.6 g/dl (12.5-16.0); LYMPH # 1.5 K/mm3 (1.2-3.4); LYMPH % 17.2 % (20.0-51.0); MEAN CELL VOLUME 87 fl (80.0-100.0); MEAN CORPUSCULAR HEMOGLOBIN 28 pg (27-31); MEAN CORPUSCULAR HGB CONC 32 g/dl (33.0-37.0); MEAN PLATELET VOLUME 9.3 fl (7.4-10.4); MONO # 0.4 K/mm3 (0.1-0.6); MONO % 5.1 % (1.7-9.3); PLATELET COUNT 217 K/mm3 (130-400); RED BLOOD COUNT 4.83 M/mm3 (4.10-5.30); REDCELL DISTRIBUTION WIDTH-CV 13.5 % (11.5-14.5)
[2023-01-14 23:29] LABS: ALBUMIN 4.3 gm/dL (3.4-4.8); BILIRUBIN,TOTAL 0.5 mg/dL (0.2-1.2); CALCIUM 10.9 mg/dL (8.4-10.2); CREATININE, serum 0.95 mg/dL (0.57-1.11); POTASSIUM 4.5 mmol/L (3.5-4.5); TOTAL PROTEIN 7.9 gm/dL (6.2-8.1)
[2023-01-15] MEDS ORDERED: COZAAR100 MG PO (01:00)
[2023-01-15 01:47] VITALS: BP 172/60; PULSE 70; TEMP 98.1
[2023-01-15 03:14] VITALS: BP 142/73; PULSE 88; TEMP 97.4
[2023-01-15 03:32] VITALS: BP 119/50; PULSE 64; TEMP 97.5
[2023-01-15 06:07] LABS: BASO % 0.4 % (0.0-2.0); EOS # 0.1 K/mm3 (0.0-0.7); EOS % 0.7 % (0.0-4.0); GRAN # 6.2 K/mm3 (1.4-6.5); HEMATOCRIT 37.7 % (37.0-47.0); HEMOGLOBIN 12.2 g/dl (12.5-16.0); LYMPH # 0.7 K/mm3 (1.2-3.4); LYMPH % 8.7 % (20.0-51.0); MEAN CELL VOLUME 89 fl (80.0-100.0); MEAN CORPUSCULAR HEMOGLOBIN 29 pg (27-31); MEAN CORPUSCULAR HGB CONC 32 g/dl (33.0-37.0); MEAN PLATELET VOLUME 9.5 fl (7.4-10.4); MONO # 0.5 K/mm3 (0.1-0.6); MONO % 7.1 % (1.7-9.3); PLATELET COUNT 172 K/mm3 (130-400); RED BLOOD COUNT 4.24 M/mm3 (4.10-5.30); REDCELL DISTRIBUTION WIDTH-CV 13.4 % (11.5-14.5)
[2023-01-15 06:24] LABS: CALCIUM 8.9 mg/dL (8.4-10.2); CREATININE, serum 0.75 mg/dL (0.57-1.11); POTASSIUM 4.5 mmol/L (3.5-4.5)
[2023-01-15 07:25] VITALS: BP 138/59; PULSE 66; TEMP 98
--- NOTE | 2023-01-15 08:05 | NUR ---
PATIENT ALERT AND ORIENTED X4. VSS. PATIENT HERE FOR SBO. PATIENT REPORTS MEDIUM LOOSE STOOL THIS AM. PATIENT DENIES PAIN AT THIS TIME. IV TO LEFT AC WITH NS RUNNING AT 125ML/HOUR. PATIENT RESTING IN BED, AWARE OF NPO STATUS.
[2023-01-15 11:36] VITALS: BP 126/70; PULSE 66; TEMP 98.1
--- NOTE | 2023-01-15 12:22 | NUR ---
SW met with pt to complete intake. Pt reports she lives at home with her spouse and is independent with all ADLS and does not use any DME. Pt reports her PCP is Kimberley Fajardo MD and gets medications from [facility] and has no problem obtaining cost. DPOA-HC is Davis and Andrea @ [phone]. No other needs at this time. SW await for further recommendations and follow up as needed. DC:Home.
[2023-01-15 15:21] VITALS: BP 122/48; PULSE 62; TEMP 98.7
--- NOTE | 2023-01-15 16:00 | NUR ---
Dr. Oswald Called to update. He is ok with pt. discharging. Dr. Jara notified of this.
--- NOTE | 2023-01-15 17:30 | NUR ---
Pt. ready to Discharge. INT discontinued from rt. forearm. Discharge paperwork reviewed and given to the pt. Pt. voices understanding. Pt. dressed and escorted out by CISCO ENGINEER.
== END 2023-01-15 17:30 | disposition home or self-care (01) | DRG 390 ==
LOC: COL.ER 22:33 → SURG 01-15 01:10
PROVIDERS: Nurse Practitioner Family; Personal Emergency Response Attendant; ADMIT Student in an Organized Health Care Education/Training Program
DX: K56.609 Unspecified intestinal obstruction, unspecified as to partial versus complete obstruction (principal); I10 Essential (primary) hypertension; E78.5 Hyperlipidemia, unspecified; I48.91 Unspecified atrial fibrillation; Z90.49 Acquired absence of other specified parts of digestive tract; Z90.710 Acquired absence of both cervix and uterus; Z79.01 Long term (current) use of anticoagulants; Z79.899 Other long term (current) drug therapy; Z87.891 Personal history of nicotine dependence
CPT/HCPCS: J2270; J2405; J2550; J7030; Q9967